=== PATIENT | female | born 1960 | race Caucasian/White ===

== ENCOUNTER 2016-05-15 09:25 | Emergency (ER) | payer OTHER ==
[~2016-05-15] VITALS: Ht 165.1 cm; Wt 71.5 kg
[~2016-05-15 09:25] MED LIST: BLACK CHERRY PO; CALCIUM 500 MG1 EACH PO; CO Q-10100 MG PO; DAILY VITAMIN1 EAC8 PO; FISH OIL 1,0001 EAC7 PO; FLEXERIL10 MG PO; HARD NAILS2500 MCG PO; HYDROCHLOROTH12.5 M3 PO; LO-DOSE ASPIRIN81 M1 PO; MELOXICAM15 MG PO; TRIPLE FLEX CA1 EACH PO; VITAMIN B-122500 MCG SL; VITAMIN E400 UNIT PO
[2016-05-15] MEDS ORDERED: BACTRIM,SEPT1 TABLET PO (10:38)
[2016-05-15 10:49] VITALS: BP 126/82
== END 2016-05-15 10:50 | disposition home or self-care (01) ==
LOC: EME 09:25
PROC: 0H9FXZZ Drainage of Right Hand Skin, External Approach (ICD-10-PCS; principal; 2016-05-15)
DX: L03.011 Cellulitis of right finger (principal); Z88.1 Allergy status to other antibiotic agents; Z79.82 Long term (current) use of aspirin; I10 Essential (primary) hypertension
CPT/HCPCS: 99281; 99284